=== PATIENT | male | born 1995 | race African-American/Black ===

== ENCOUNTER 2022-05-08 16:56 | Emergency (ER) | payer OTHER, SELFPAY ==
--- NOTE | ~2022-05-08 | US_ITS ---
EXAMINATION: US SCROTUM CLINICAL INFORMATION: Left-sided testicular pain. COMPARISON: None TECHNIQUE: A sonogram of the scrotum was performed assessing mckay-scale appearance and color Doppler flow. Spectral Doppler analysis of the arterial and venous flow were performed in the testes bilaterally. FINDINGS: RIGHT: Right testicle measures 3.9 x 2.4 x 2.6 cm, volume 12.2 mL. No focal testicular parenchymal lesions are visualized. Spectral Doppler analysis of the arterial and venous flow is normal in the right testis. Normal variant of an appendix testes on the right. Microlithiasis in right testicle. Right epididymal head is normal in size. Small volume right-sided hydrocele. No varicocele. Right epididymal Doppler flow is normal. LEFT: Left testicle measures 4 x 2 x 2.4 cm, volume 10 mL. No focal testicular parenchymal lesions are visualized. Spectral Doppler analysis of the arterial and venous flow is normal in the left testis. Microlithiasis and left testicle. Left epididymal head is normal in size. Trace left-sided hydrocele. There is no varicocele. Left epididymal Doppler flow is normal. US/US scrotum doppler IMPRESSION: 1. No acute abnormality. 2. Bilateral microlithiasis. 3. Small volume right-sided hydrocele. Trace left-sided hydrocele. 4. No varicocele. 5. Normal vascular flow in the right and left testicle. No testicular torsion. 6. Microlithiasis in the right and left testicle. In the absence of any other risk factors for testicular cancer (e.g. Personal history of testicular cancer, a father or brother with testicular cancer, history of cryptorchidism or maldescent, testicular atrophy, or other risk factors), no further imaging or biochemical follow-up is necessary; all that is recommended is routine monthly testicular self-examination. However, if the patient has risk factors for testicular cancer, referral to a urologist for evaluation and determination of an optimal follow-up strategy is recommended.
--- NOTE | ~2022-05-08 | CT_ITS ---
EXAMINATION: CT ABDOMEN AND PELVIS WITHOUT CONTRAST CLINICAL INFORMATION: Enlarged scrotum. Question hernia. COMPARISON: None TECHNIQUE: Multidetector volumetric imaging was performed from the superior aspect of the liver through the pubic symphysis. Sagittal and coronal reformatted images were obtained on the technologist's workstation. This CT examination was performed using dose optimization techniques as appropriate, variously including the following: *Automated exposure control *Adjustment of mA and/or kV according to patient size (this includes techniques or standardized protocols for targeted exams where dose is matched to indication/reason for exam; i.e. extremities or head) *Use of iterative reconstruction technique DLP: 629 mGy-cm FINDINGS: LUNG BASES: The visualized lung bases are unremarkable. LIVER, GALLBLADDER, AND BILIARY TREE: The liver is normal in size, shape, and attenuation. No focal hepatic lesion or biliary ductal dilatation is present. The gallbladder is unremarkable with no evidence of radiopaque gallstones, gallbladder wall thickening, or obvious pericholecystic inflammatory changes. PANCREAS: Unremarkable. SPLEEN: Unremarkable. ADRENAL GLANDS: Unremarkable. KIDNEYS AND URETERS: The kidneys are normal in size, shape, and attenuation. No hydronephrosis, hydroureter, or calculi seen. No perinephric stranding. BLADDER: Unremarkable. GASTROINTESTINAL TRACT: The small and large bowel are unremarkable. The appendix is unremarkable. ABDOMINAL WALL: There is a large fat-containing inguinal hernia. This appears to be an indirect hernia. Inflammation/fluid is seen dependently in the hernia sac. This extends into the scrotum. LYMPH NODES: Normal. VASCULAR: Unremarkable. PELVIC VISCERA: The prostate and seminal vesicles are unremarkable. OSSEOUS STRUCTURES: Unremarkable. CT/CT abdomen pelvis wo IV con IMPRESSION: Large fat-containing inguinal hernia. This appears to be an indirect hernia. Inflammation/fluid is seen dependently in the hernia sac. This extends into the scrotum. Fleischner guidelines were followed.
[2022-05-08 17:23] VITALS: BP 130/71; PULSE 67; RESP 18; TEMP 36.6; O2SAT 99; BMI 27.9
[2022-05-08 17:47] LABS: Appearance Urine Clear; Color Urine Yellow; Glucose Urine UA Negative (Negative); Leukocyte Esterase Urine Negative (Negative); Nitrite Urine Negative (Negative); PH 7.5 (5.0-9.0); Urine Blood Negative (Negative); Urine Ketones Negative (Negative); Urine Protein Negative (Neg-Trace)
[2022-05-08 20:35] VITALS: BP 124/62; PULSE 65; RESP 17; TEMP 37.2; O2SAT 100
--- NOTE | 2022-05-08 22:17 | ED_ITS ---
HPI - Male Genitourinary General Chief complaint: Urogenital-Male Stated complaint: ? swollen testicles in great pain Time Seen by Provider: 05/08/22 20:57 Source: patient Mode of arrival: ambulatory Limitations: no limitations History of Present Illness HPI Narrative: 27-year-old male presenting to the emergency department with complaints of testicular pain and swelling for the past year worsening over the past few days. Patient tells me that this has happened to him before, reporting pain is worse to the right testicle. Tells me pain is gradual in onset, however these past 2 days have been tolerable. He tells me he was referred to a specialist for this problem once however he has not seen them yet. Patient denies any concerns for STDs or STIs. Denies any urinary symptoms. He tells me his scrotum appears large and is tender to palpation particularly on the right-hand side. Patient denies chest pain, shortness of breath, nausea, vomiting, fevers, chills, headache, vision changes in dizziness. Related Data Allergies Allergy/AdvReac Type Severity Reaction Status Date / Time No Known Allergies Allergy Verified 05/08/22 17:22 Review of Systems Review of Systems: Constitutional : No Weight loss, No Fever, No Chills, No Fatigue, No Malaise ENT/Mouth : No sore throat, No Rhinorrhea Eyes: No Eye Pain, No Swelling, No Redness Cardiovascular : No Chest Pain, No SOB, No Dyspnea on Exertion, No Orthopnea, No Edema, No Palpitations Respiratory : No Cough, No Sputum, No Wheezing Gastrointestinal : No Nausea, No Vomiting, No Diarrhea, No Constipation, No abdominal Pain, No Hematochezia, No Melena Genitourinary : No Dysuria, No Urinary Frequency, No Hematuria, + testicular pain Musculoskeletal : No joint pain, No Myalgias, No Joint Swelling Skin : No Skin Lesions, No rash All other systems reviewed and are negative Yes all other systems are reviewed and are negative [facility] Past Medical History Attestation statement: The following information was validated with the patient. Source: old records reviewed and nursing notes reviewed Social History Social History Advance Directives: No Advance Directives Information Provided: No Physical Exam Vital Signs: Vital Signs: Last Vital Signs Temp 99 F 05/08/22 20:35 Pulse 65 05/08/22 20:35 Resp 17 05/08/22 20:35 BP 124/62 05/08/22 20:35 Pulse Ox 100 05/08/22 20:35 O2 Del Method 05/08/22 20:35 BMI result Body Mass Index 27.9 vss Appearance: Alert.? Oriented X3.? No acute distress.? Head: Normocephalic, atraumatic, no step-offs or deformities Eyes: Pupils equal, round and reactive to light.? Neck: Normal inspection.? Neck supple.? CVS: Normal heart rate and rhythm.? Pulses normal.? Respiratory: No respiratory distress.? Breath sounds normal.? Abdomen: Soft and nontender.? Skin: Skin warm and dry.? Normal skin color.? Normal skin turgor.? Extremities: No lower extremity edema.? No calf ttp. 5/5 strength to bilateral upper and lower extremities Sensative: Enlarged scrotum b/l. Slight tenderness to palpation of left testicle, no overlying skin changes, normal cremasteric reflex. Possible hydroceles based off of transillumination test. Normal external genitalia no lesions months or masses. Normal male penis. No discharge. ? indirect hernia to r. side. Neuro: Oriented X 3.? No motor deficit.? No sensory deficit. CN 2-12 intact Course Course Course Narrative: This case was disscused with my attending who evaluated patient and agrees w/ dx and tx plan. Reevaluation(s) Reevaluation #1: UA without infection. Gonorrhea and chlamydia pending. Ultrasound of the scrotum with no acute abnormality, bilateral microlithiasis and small volume right-sided hydrocele and trace left-sided hydrocele. No varicoceles noted. Normal vascular flow and right and left testicles no signs of testicular torsion. Microlithiasis in the right and left testes, without risk factors no further imaging or biochemical follow-up is necessary however will give follow- up with urology as this appears to be a chronic problem that is causing him discomfort for over year. At time patient will be discharged home advised return with new or worsening symptoms. Educated on worrisome signs and symptoms and when to return. Time: 22:21 Reevaluation #2: Jose Miguel Flowers evaluated patient and reduced right inguinal hernia, tells me feels as though it is fat containing. Advised for patient to follow-up with general surgery. 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 At this time patient will be discharged home with general surgery and urology follow-up. Educated on worrisome signs and symptoms and when to return. We did teach him how to reduce his own hernia, patient verbalizes understanding. At this time patient will be discharged home. Time: 00:43 Medications Administered Discontinued Medications Generic Name Dose Route Start Last Admin Trade Name Katharine PRN Reason Stop Dose Admin Ketorolac Tromethamine 30 mg 05/08/22 22:18 05/08/22 22:32 Ketorolac Tromethamine 15 Mg/Ml Vial IM 05/08/22 22:19 30 mg ONCE ONE Administration MDM - Male Genitourinary MDM Narrative Medical decision making narrative: 2219 27-year-old male presents with left-sided testicular pain for a year worsening the past few days. Denies concerns for STD/STI eyes, would not like prophylactic treatment. Physical examination significant for Slight tenderness to palpation of left testicle, no overlying skin changes, normal cremasteric reflex. Possible hydroceles based off of transillumination test. Normal external genitalia no lesions months or masses. Normal male penis. No discharge. Concerns for hydrocele versus epididymitis versus orchitis vs indirect hernia. Unlikely testicular torsion. Plan at this time is ultrasound, urine, gonorrhea and chlamydia testing. Medical Records Attestation: I reviewed the patient's medical records. Lab Data Attestation: I reviewed the patient's lab results. Labs: Lab Results 05/08/22 Range/Units 17:38 Urine Color Yellow Urine Appearance Clear Urine pH 7.5 (5.0-9.0) Ur Specific [place] 1.020 (1.005-1.025) Urine Protein Negative (Neg-Trace) mg/dL Urine Glucose (UA) Negative (Negative) mg/dL Urine Ketones Negative (Negative) mg/dL Urine Blood Negative (Negative) Urine Nitrite Negative (Negative) Ur Leukocyte Esterase Negative (Negative) Critical Care Time Critical Care Time Critical Care Time: No Discharge Plan Discharge Clinical Impression: Hydrocele, Pain in testicle, Indirect inguinal hernia Patient Disposition: Home, Self-Care Instructions: Hydrocele (ED), Testicle Pain (ED), Scrotal Pain (ED) Additional Instructions: Take your medications as prescribed. If you were prescribed antibiotics today, it is important that you take your medication to their entirety, do not skip any doses, do not finish them early. Follow-up with your primary care provider this week. Follow-up with urology information below. Return to the emergency department with new or worsening symptoms. Such as fevers, chills, chest pain, shortness of breath, nausea, vomiting, dizziness, headache, vision changes, lethargy, fevers, chills In case of emergency call 911 Elevate your testicles. US/US scrotum IMPRESSION: 1.? No acute abnormality. 2.? Bilateral microlithiasis. 3.? Small volume right-sided hydrocele. Trace left-sided hydrocele. 4.? No varicocele. 5.? Normal vascular flow in the right and left testicle. No testicular torsion. 6.? Microlithiasis in the right and left testicle. In the absence of any other risk factors for testicular cancer (e.g. Personal history of testicular cancer, a father or brother with testicular cancer, history of cryptorchidism or maldescent, testicular atrophy, or other risk factors), no further imaging or biochemical follow-up is necessary; all that is recommended is routine monthly testicular self-examination. However, if the patient has risk factors for testicular cancer, referral to a urologist for evaluation and determination of an optimal follow-up strategy is recommended. CT/CT abdomen pelvis wo IV con IMPRESSION: Large fat-containing inguinal hernia. This appears to be an indirect hernia. Inflammation/fluid is seen dependently in the hernia sac. This extends into the scrotum. ? Fleischner guidelines were followed. Referrals: Physician,None [Primary Care Provider] - 2 days [facility] [Provider Group] - 3 days Stand Alone Forms: Work/School Release
[2022-05-08] MEDS: Ketorolac Tromethamine 15 MG/ML VIAL 30 MG IM (22:32)
--- NOTE | 2022-05-08 22:41 | PC.NURSE ---
patient speaks [place] Creole. Video/phone quality technician fiberglass services available when interacting with patient.
--- NOTE | 2022-05-09 00:58 | PC.NURSE ---
Discharge instructions reviewed with pt. Pt verbalizes understanding.
[2022-05-09 05:42] LABS: CT PCR NOT DETECTED (Not Detect.); NG PCR NOT DETECTED (Not Detect.)
== END 2022-05-09 00:59 | disposition home or self-care (01) ==
PROVIDERS: Emergency Provider Internal Medicine
DX: N43.3 Hydrocele, unspecified (principal); N50.812 Left testicular pain; N50.811 Right testicular pain; K40.90 Unilateral inguinal hernia, without obstruction or gangrene, not specified as recurrent
CPT/HCPCS: 74176; 76870; 81003; 87491; 87591; 93975; 96372; 99284; J1885

== ENCOUNTER → 2022-05-12 14:11 | Outpatient (BNVA) | payer OTHER, SELFPAY | PROVIDERS: Visit Provider Surgery | DX: K40.90 Unilateral inguinal hernia, without obstruction or gangrene, not specified as recurrent (principal); L73.9 Follicular disorder, unspecified | CPT/HCPCS: 99202 ==

== ENCOUNTER 2023-11-07 15:02 | Emergency (ER) | payer OTHER, SELFPAY ==
--- NOTE | ~2023-11-07 | US_ITS ---
EXAMINATION: US SCROTUM CLINICAL INFORMATION: Right-sided testicular pain. COMPARISON: 05/08/2022 TECHNIQUE: A sonogram of the scrotum was performed assessing mckay-scale appearance and color Doppler flow. Spectral Doppler analysis of the arterial and venous flow were performed in the testes bilaterally. FINDINGS: RIGHT: Right testicle measures 3.0 x 2.5 x 2.6 cm, volume 10.2 mL. Testicular microlithiasis again noted. No focal testicular parenchymal lesions are visualized. Spectral Doppler analysis of the arterial and venous flow is normal in the right testis. Right inguinal hernia again noted. No bowel involvement. Right epididymal head is normal in size. No right hydrocele or varicocele is seen. Right epididymal Doppler flow is normal. LEFT: Left testicle measures 4.1 x 2.2 x 2.5 cm, volume 11.7 mL. Testicular microlithiasis again noted. No focal testicular parenchymal lesions are visualized. Spectral Doppler analysis of the arterial and venous flow is normal in the left testis. Left epididymal head is normal in size. No left hydrocele or varicocele is seen. Left epididymal Doppler flow is normal. US/US scrotum IMPRESSION: 1. No evidence for any active torsion. No discrete mass. Testicular microlithiasis again noted. No new findings. No new abnormality. No hydrocele. No mass. No change from 05/08/2022. If patient's symptoms persist, consider follow-up ultrasound in 6 months. 2. Incidental note of bilateral testicular microlithiasis. No testicular mass. No evidence for any active torsion. No change from prior study 05/08/2022. 3. Right inguinal hernia again noted containing fat.
--- NOTE | ~2023-11-07 | US_ITS ---
EXAMINATION: US SCROTUM CLINICAL INFORMATION: Right-sided testicular pain. COMPARISON: 05/08/2022 TECHNIQUE: A sonogram of the scrotum was performed assessing mckay-scale appearance and color Doppler flow. Spectral Doppler analysis of the arterial and venous flow were performed in the testes bilaterally. FINDINGS: RIGHT: Right testicle measures 3.0 x 2.5 x 2.6 cm, volume 10.2 mL. Testicular microlithiasis again noted. No focal testicular parenchymal lesions are visualized. Spectral Doppler analysis of the arterial and venous flow is normal in the right testis. Right inguinal hernia again noted. No bowel involvement. Right epididymal head is normal in size. No right hydrocele or varicocele is seen. Right epididymal Doppler flow is normal. LEFT: Left testicle measures 4.1 x 2.2 x 2.5 cm, volume 11.7 mL. Testicular microlithiasis again noted. No focal testicular parenchymal lesions are visualized. Spectral Doppler analysis of the arterial and venous flow is normal in the left testis. Left epididymal head is normal in size. No left hydrocele or varicocele is seen. Left epididymal Doppler flow is normal. US/US scrotum doppler IMPRESSION: 1. No evidence for any active torsion. No discrete mass. Testicular microlithiasis again noted. No new findings. No new abnormality. No hydrocele. No mass. No change from 05/08/2022. If patient's symptoms persist, consider follow-up ultrasound in 6 months. 2. Incidental note of bilateral testicular microlithiasis. No testicular mass. No evidence for any active torsion. No change from prior study 05/08/2022. 3. Right inguinal hernia again noted containing fat.
[2023-11-07 15:50] VITALS: BP 109/79; PULSE 71; RESP 18; TEMP 37.4; O2SAT 98
--- NOTE | 2023-11-07 15:56 | ED_ITS ---
HPI - General Adult General Chief complaint: Urogenital-Male Stated complaint: hernia Time Seen by Provider: 11/08/23 00:19 Source: patient Mode of arrival: ambulatory Limitations: no limitations History of Present Illness ED Provider: Dr. Eugene Mcdowell HPI narrative: 28-year-old male with no significant past medical history who presents emergency department for evaluation of right testicular pain. The patient states that he has had right groin and testicular pain for 2 years. He states that he had a hernia repair at [facility] proximally 2 years prior which failed. Patient states that over the past week he has had increased pain in his right testicle and a area where he has the hernia. He states that the pain is an intermittent, pressure-like pain which can be 5/10 at its worst. The patient does take Tylenol relief for the pain. He denied frequency, urgency, dysuria. He denied any penile discharge. Related Data Home Medications ?Medication ?Instructions ?Recorded ?Confirmed No Known Home Meds 05/12/22 05/12/22 Allergies Allergy/AdvReac Type Severity Reaction Status Date / Time No Known Allergies Allergy Verified 11/07/23 15:53 Review of Systems 2 Review of Systems: Yes all other systems are reviewed and are negative [facility] Past Medical History [facility] Narrative: Past medical history: None. Past surgical history: Right inguinal hernia repair 2 years prior at [facility]. Social history: He denies tobacco, alcohol and drug use. He is . Social History Social History (Reviewed 05/12/22 @ 14:52 by Keith Sanchez MD, [facility], [facility]) Advance Directives: No Advance Directives Information Provided: No Physical Exam ED Vital Signs: Vital Signs - 24 hr 11/07/23 15:50 11/07/23 23:26 Temperature 99.3 F 97.4 F Pulse Rate 71 68 Respiratory Rate 18 16 Blood Pressure 109/79 131/79 Pulse Oximetry 98 97 Oxygen Delivery Method Room Air Room Air BMI result Body Mass Index 30.0 Vital signs were Exam: General: Awake, alert in no distress Head: Normocephalic, atraumatic EENT: PERRL, Lids normal, sclera normal, conjunctiva normal, nose normal , ears normal, throat without erythema or exudates Neck: Supple, no adenopathy Lung: breath sounds symmetric, no wheezing, rales or rhonchi Chest: symmetric movement, nontender Heart: regular rate and rhythm, normal S1, S2 no murmurs or rubs Abdomen: soft, non-tender, nondistended, normal bowel sounds : Patient has a large hernia in his right scrotum which is tender to palpation Back: no vertebral tenderness, no CVAT Extremities: no deformities, moves all extremities symmetrically Neuro: Awake, alert, oriented, normal speech, cranial nerves intact, moves all extremities symmetrically Psych: Pleasant, cooperative Course Course Course Narrative: RME- 28-year-old male presents for evaluation of right groin pain. He states that he has a known hernia and right testicle pain. Plan for labs, UA, ultrasound Medical Decision Making Medical Decision Making [facility] Narrative: 28-year-old male with no significant past medical history who has had a right inguinal hernia repair 2 years prior at [facility] which she states failed. The patient complains of right-sided testicular/scrotal pain x1 week which is gotten worse. He has had similar pain over the last 2 years. Patient's vital signs were normal patient's exam does reveal a large right inguinal/scrotal hernia. Differential diagnosis: ?Includes but is not limited to fat hernia, intestinal hernia, testicular torsion, epididymitis Following evaluation was ordered: CBC, CMP, lipase, right testicular ultrasound Course: :02 Laboratory evaluation as follows: CBC was normal. CMP revealed an elevated CO2 of 30. Lipase was normal Doppler ultrasound of the right scrotum revealed no torsion. The patient does have [place] listhesis which was noted in the past no testicular mass. No change from 05/08/2022. Patient was noted to have a right inguinal hernia containing fat. Patient's right testicular pain is due to the large inguinal fat hernia in his scrotum. I did discuss this with the patient. The patient will be referred to our on-call surgeon Dr. Harris and our on-call urologist Dr. Burk. He was advised to continue taking Tylenol and ibuprofen for his pain Admission/Observation Consideration of admission/observation: Escalation of care including admission/observation considered Lab Data [facility] Lab Attestation statement: I reviewed the patient's lab results. 11/07/23 17:11 11/07/23 17:11 Labs: Lab Results 11/07/23 Range/Units 17:11 WBC 7.0 (4.8-10.8) X10*3/uL RBC 5.32 (4.60-5.80) X10*6/uL Hgb 15.5 (14.0-18.0) g/dl Hct 45.1 (42.0-52.0) % MCV 84.8 (80.0-98.0) fL MCH 29.1 (27.0-33.0) pg MCHC 34.4 (31.0-36.0) g/dl RDW 12.5 (11.0-16.0) % Plt Count 336 (160-400) X10*3/uL MPV 9.3 L (9.4-12.4) fL Immature Gran % (Auto) 0.1 (0.0-0.4) % Neut % (Auto) 36.2 L (45-73) % Lymph % (Auto) 49.6 H (20-40) % [place] % (Auto) 6.5 (2-11) % Eos % (Auto) 6.7 H (0-4) % Baso % (Auto) 0.9 (0-2) % Lymph # (Auto) 3.5 (1.2-4.9) X10*3/uL [place] # (Auto) 0.5 (0.1-1.2) X10*3/uL Eos # (Auto) 0.5 H (0.0-0.4) X10*3/uL Baso # (Auto) 0.1 (0.0-0.2) X10*3/uL Abs Immat Gran (auto) 0.01 (0.00-0.03) X10*3/uL Absolute Neuts (auto) 2.5 (2.0-8.3) x10*3/uL Absolute Nucleated RBC 0.000 (0.0-0.012) X10*3/uL Nucleated RBC % (auto) 0.0 (0.0-0.2) /100WBC Sodium 141 (135-145) mmol/L Potassium 3.7 (3.3-5.1) mmol/L Chloride 104 (96-108) mmol/L Carbon Dioxide 30 H (22-29) mmol/L Anion Gap 11 L (12-20) BUN 11 (9-16) mg/dL Creatinine 0.98 (0.5-1.4) mg/dL Estim Creat Clear Calc 124.1 Estimated GFR > 60 Random Glucose 80 (60-115) mg/dL Calcium 9.3 (8.4-10.2) mg/dL Total Bilirubin 0.4 (0.0-1.0) mg/dL AST 19 (5-37) U/L ALT 26 (0-40) U/L Alkaline Phosphatase 70 (39-117) U/L Total Protein 7.3 (6.5-8.0) g/dL Albumin 4.3 (3.5-5.0) g/dL Lipase 27 (8-78) U/L Radiology Impression Discussion of test interpretation with radiology: I have reviewed the radiologist's reading. Radiologist Impression: US scrotum doppler IMPRESSION: 1. No evidence for any active torsion. No discrete mass. Testicular microlithiasis again noted. No new findings. No new abnormality. No hydrocele. No mass. No change from 05/08/2022. If patient's symptoms persist, consider follow-up ultrasound in 6 months. 2. Incidental note of bilateral testicular microlithiasis. No testicular mass. No evidence for any active torsion. No change from prior study 05/08/2022. 3. Right inguinal hernia again noted containing fat. Dictated By: Adriel Santoro MD Discharge Plan Discharge Clinical Impression: Right inguinal hernia Patient Disposition: Home, Self-Care Instructions: Inguinal Hernia (ED) Additional Instructions: Your blood work was normal. The ultrasound revealed a right-sided fat containing inguinal hernia. The testicle on the right side is not twisted. Testicles bilaterally which is not new, you had these before but you should follow-up with our urologist You were here 05/09/2022 and at that time he also had a large fat containing hernia. I am going to refer you to our surgeon on-call, Dr. Harris. Call his office to make a follow-up appointment within 2 weeks to see if he can help you with this hernia. You also need to follow-up with our on-call urologist, Dr. Burk to evaluate your microlithiasis/stones in your testicles. Take ibuprofen 200 mg pills, 2 pills every 6 hours as needed for pain or fever. Take Tylenol (acetaminophen) 500 mg pills, 2 pills every 6 hours as needed for pain or fever. Follow-up with your doctor in 2 days. Please return to the emergency department if your symptoms get worse or if you develop any symptoms that are concerning to you. Prescriptions: No Action No Known Home Meds Referrals: Mikey Harris MD [Physician] - 2 weeks (Right, large indirect fat inguinal hernia with no intestine) Roe Burk MD [Physician] - (Right testicular pain, large right indirect fat containing inguinal hernia, myocardial listhesis noted on off for sign with no torsion) Print Language: Citizen Of [place] Creole
[2023-11-07 17:17] LABS: MANUAL DIFF FLAG NO
[2023-11-07 17:24] LABS: Basophils Absolute Auto 0.1 X10*3/uL (0.0-0.2); Basophils Percent Auto 0.9 % (0-2); Eosinophils Absolute Auto 0.5 X10*3/uL (0.0-0.4); Eosinophils Percent Auto 6.7 % (0-4); Hematocrit 45.1 % (42.0-52.0); Hemoglobin 15.5 g/dl (14.0-18.0); Imm Gran Abs Auto 0.01 X10*3/uL (0.00-0.03); Imm Gran Pct Auto 0.1 % (0.0-0.4); Lymphocytes Absolute Auto 3.5 X10*3/uL (1.2-4.9); Lymphocytes Percent Auto 49.6 % (20-40); Mean Corpuscular HGB Conc 34.4 g/dl (31.0-36.0); Mean Corpuscular Hemoglobin 29.1 pg (27.0-33.0); Mean Corpuscular Volume 84.8 fL (80.0-98.0); Mean Platelet Volume 9.3 fL (9.4-12.4); Monocytes Absolute Auto 0.5 X10*3/uL (0.1-1.2); Monocytes Percent Auto 6.5 % (2-11); Neutrophils Absolute Auto 2.5 x10*3/uL (2.0-8.3); Neutrophils Percent Auto 36.2 % (45-73); Platelet Count 336 X10*3/uL (160-400); Red Blood Count 5.32 X10*6/uL (4.60-5.80); Red Cell Distribution Width 12.5 % (11.0-16.0)
[2023-11-07 17:38] LABS: Alanine Aminotransferase 26 U/L (0-40); Albumin Level 4.3 g/dL (3.5-5.0); Alkaline Phosphatase 70 U/L (39-117); Anion Gap 11 (12-20); Aspartate Amino Transferase 19 U/L (5-37); Bilirubin Total 0.4 mg/dL (0.0-1.0); Blood Urea Nitrogen 11 mg/dL (9-16); Calcium 9.3 mg/dL (8.4-10.2); Carbon Dioxide 30 mmol/L (22-29); Chloride 104 mmol/L (96-108); Creatinine Clr Calc Pharmacy 124.1; Estimated Glomerular Filt Rate > 60; Glucose Random 80 mg/dL (60-115); Lipase 27 U/L (8-78); Potassium 3.7 mmol/L (3.3-5.1); Sodium 141 mmol/L (135-145); Total Protein 7.3 g/dL (6.5-8.0)
[2023-11-07 23:26] VITALS: BP 131/79; PULSE 68; RESP 16; TEMP 36.3; O2SAT 97
[2023-11-08 01:02] VITALS: BP 131/79; PULSE 68; RESP 16; TEMP 36.3; O2SAT 97
== END 2023-11-08 01:06 | disposition home or self-care (01) ==
PROVIDERS: Physician Assistant; Emergency Provider Emergency Medicine Emergency Medical Services
DX: K40.90 Unilateral inguinal hernia, without obstruction or gangrene, not specified as recurrent (principal)
CPT/HCPCS: 36415; 76870; 80053; 83690; 85025; 93975; 99282; 99284

== ENCOUNTER 2023-11-17 11:01 | Outpatient (AMB) | payer OTHER, SELFPAY ==
[2023-11-17 11:16] VITALS: BP 131/71; PULSE 65; BMI 30.4
--- NOTE | 2023-11-17 11:16 | A.OFFVIS_ITS ---
Vital Signs 11/17/23 11:16 Height 5 ft 7.32 in Weight 196 lb BMI 30.4 BP 131/71 Blood Pressure Location Rt brachial Position Sitting Pulse 65 Intake Visit Reasons: Umbilical hernia~ ER 11-07-23 Intake Note: Patient referred after ER visit for umbilical hernia on 11-07-23. Present for 2yrs. Patient c/o: Rt testicle/ scrotum pain. ~Called [facility] medical records but no records found. Allergies No Known Allergies Allergy (Verified 11/07/23 15:53) HPI Comments Details: Patient presents with a right groin mass which has extended through the scrotum. He has had this many weeks time. He claims to have had a procedure done at [facility] but we have no records of this and we tried to contact facility to obtain these but there are none available. In the meantime, this mass has become more symptomatic and he would like to have it evaluated and repaired. Patient otherwise tolerates his diet, he is regular bowel habits. He does occasional heavy lifting. Chart was reviewed and patient evaluated. 0 recent ultrasound at the outside facility demonstrates a right scrotal/complete inguinal hernia. Physical Exam Vital Signs: Last Vital Signs Pulse 65 11/17/23 11:16 BP 131/71 11/17/23 11:16 BMI result Body Mass Index 30.4 Chest Other: Chest breath sounds bilaterally, HS 1 in 2 GI Other: Patient was examined both supine and standing with Valsalva. Abdomen is soft, benign left groin negative. Massive right scrotal/complete inguinal hernia reducible. Bilateral testes palpable with difficulty but grossly within normal limits. Patient has a right scrotal scar from the procedure he had at the outside facility but is unclear to me as to for what this was done Assessment & Plan Assessment & Plan (1) Right inguinal hernia: Code(s): K40.90 - Unilateral inguinal hernia, without obstruction or gangrene, not specified as recurrent Category: Surgical Plan Risks, benefits, alternatives of open right inguinal herniorrhaphy with mesh of the massive right inguinal hernia were reviewed with the patient and included but not limited to bleeding, infection, recurrence, numbness, pain, scarring and the patient wishes to proceed. All questions answered. Arrangements were made for this. Coding Level of Care Code New Pt Level 5 (73018) Diagnoses Right inguinal hernia K40.90
== END 2023-11-17 12:00 | disposition home or self-care (01) ==
PROVIDERS: Visit Provider Surgery
DX: K40.90 Unilateral inguinal hernia, without obstruction or gangrene, not specified as recurrent (principal)
CPT/HCPCS: 99204

== ENCOUNTER → 2023-11-17 11:01 | Outpatient (BNVA) | payer OTHER, SELFPAY | PROVIDERS: Visit Provider Surgery | DX: K40.90 Unilateral inguinal hernia, without obstruction or gangrene, not specified as recurrent (principal) | CPT/HCPCS: 99202 ==

== ENCOUNTER 2024-01-11 13:21 | Outpatient (AMB) | payer OTHER, SELFPAY ==
--- NOTE | 2024-01-11 13:34 | A.OFFVIS_ITS ---
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 Jeter. He presents to the office today as a new patient for testicular/scrotal pain. In discussion with the patient today reports having seeked emergency room care approximately 2 months ago for right-sided groin and testicular pain he had been experiencing at which time a scrotal ultrasound was ordered and performed. These results were reviewed with the patient today. No evidence of any active torsion. Testicular microlithiasis again noted. No new findings. No new abnormality. Right inguinal hernia again noted. He reports pain has since subsided and feels this is related to his right-sided inguinal hernia and is scheduled for repair next week. He denies any bothersome urinary issues or concerns. Patient declines physical assessment during today's office visit. Discussed in offered male provider however he reports he is no longer experiencing any testicular or scrotal pain and therefore he does not feel assessment is necessary at this time. He denies urinary urgency, urinary frequency, incontinence, nocturia, hematuria, dysuria, foul smelling urine, changes to urinary stream, flank pain, fever, and or chills. He is happy with his current voiding parameters. In office urinalysis results reviewed with the patient today. He otherwise offers no other issues or concerns at this time. Review of Systems Const All systems reviewed & are unremarkable except as noted in HPI and below Physical Exam Const General: cooperative, healthy appearing, comfortable, no acute distress, well developed, alert and awake Orientation/consciousness: patient oriented x3 Limitations: no limitations HEENT Head: Yes normal to inspection, Yes normocephalic and Yes atraumatic Ears: hearing grossly normal bilaterally Eyes General: appearance normal, both eyes and all related structures Neck Neck: Yes normal visual inspection and Yes trachea midline Chest Chest palpation & inspection: normal inspection of the chest Resp Effort & Inspection: normal respiratory effort and able to speak in complete sentences Cardio Rate: regular rate GI Inspection: Yes normal to inspection General: Yes no CVA tenderness Back/Spine/Pelvis Back: no CVA tenderness Skin General skin exam: no rashes or lesions noted Neuro General: patient oriented x3 Extrem General: Yes normal to inspection Psych Appearance: grossly normal and well kempt Mental Status: mental status grossly normal Speech and movement: Normal speech and movement present and Clear speech present Affect: normal affect Attitude: cooperative Thought process: Normal thought process present Thought content: Normal thought content present Insight: Fair insight present (Psych) Judgement: Fair judgement present (Psych) Results AMB Urinalysis, Automated UA Leukoctes 0 Olga/uL Last Edit by [employer] on 01/11/24 13:43 UA Nitrite Negative Last Edit by [employer] on 01/11/24 13:43 UA Urobilinogen 0.2 mg/dL Last Edit by [employer] on 01/11/24 13:43 UA Protein 0 mg/dL Last Edit by [employer] on 01/11/24 13:43 UA pH 6.5 Last Edit by [employer] on 01/11/24 13:43 UA Blood 0 Vincent/uL Last Edit by [employer] on 01/11/24 13:43 UA Specific [place] 1.015 Last Edit by [employer] on 01/11/24 13:43 UA Ketone Negative Last Edit by [employer] on 01/11/24 13:43 UA Bilirubin 0 mg/dL Last Edit by [employer] on 01/11/24 13:43 UA Glucose 0 mg/dL Last Edit by [employer] on 01/11/24 13:43 Results Reviewed Results Reviewed: Laboratory Last Values Urine pH (Auto) 6.5 01/11/24 13:41 Specific [place] (Auto) 1.015 01/11/24 13:41 Urine Protein (Auto) 0 mg/dL 01/11/24 13:41 Glucose (UA)(Auto) 0 mg/dL 01/11/24 13:41 Urine Ketones (Auto) Negative 01/11/24 13:41 Urine Blood (Auto) 0 Vincent/uL 01/11/24 13:41 Urine Nitrite (Auto) Negative 01/11/24 13:41 Urine Bilirubin (Auto) 0 mg/dL 01/11/24 13:41 Urine Urobilinogen (Auto) 0.2 mg/dL 01/11/24 13:41 Leukocyte Esterase (Auto) 0 Olga/uL 01/11/24 13:41 Date of Service: 11/07/23 EXAMINATION: US SCROTUM FINDINGS: RIGHT: Right testicle measures 3.0 x 2.5 x 2.6 cm, volume 10.2 mL. Testicular microlithiasis again noted. No focal testicular parenchymal lesions are visualized. Spectral Doppler analysis of the arterial and venous flow is normal in the right testis. Right inguinal hernia again noted. No bowel involvement. Right epididymal head is normal in size. No right hydrocele or varicocele is seen. Right epididymal Doppler flow is normal. LEFT: Left testicle measures 4.1 x 2.2 x 2.5 cm, volume 11.7 mL. Testicular microlithiasis again noted. No focal testicular parenchymal lesions are visualized. Spectral Doppler analysis of the arterial and venous flow is normal in the left testis. Left epididymal head is normal in size. No left hydrocele or varicocele is seen. Left epididymal Doppler flow is normal. IMPRESSION: 1. No evidence for any active torsion. No discrete mass. Testicular microlithiasis again noted. No new findings. No new abnormality. No hydrocele. No mass. No change from 05/08/2022. If patient's symptoms persist, consider follow-up ultrasound in 6 months. 2. Incidental note of bilateral testicular microlithiasis. No testicular mass. No evidence for any active torsion. No change from prior study 05/08/2022. 3. Right inguinal hernia again noted containing fat. Assessment & Plan Assessment & Plan (1) Right inguinal hernia: Code(s): K40.90 - Unilateral inguinal hernia, without obstruction or gangrene, not specified as recurrent Category: Surgical (2) Pain in testicle: Code(s): N50.819 - Testicular pain, unspecified Category: Medical Plan In office urinalysis results reviewed with the patient today; as noted above. Recent scrotal ultrasound results reviewed with the patient today; as noted above. Patient denies any bothersome urinary issues or concerns. He reports be happy with current voiding parameters. Patient reports pain has since subsided. Discussed at length potential causes for testicular/scrotal pain patient had been experiencing. Patient declines physical assessment today. Follow-up p.r.n. Orders: Orders AMB Urinalysis Automated Today Z13.9 - Encounter for screening, unspecified Patient Instructions: The patient had an opportunity to ask questions regarding the treatment plan. All questions were answered. Physical exam, labs, and imaging were discussed and reviewed in detail. As well as risks, benefits, and discussion of treatment choices. No major barriers to understanding were identified. The patient expressed understanding and agreement with the above treatment plan. The patient was made aware they should contact our office by phone for worsening of their current condition, the appearance of new symptoms, or with any questions or concerns. Compliance is encouraged with any medications and follow up testing that is ordered. It is a privilege to be allowed the opportunity to participate in? your urological care.? Again, if you have any questions or concerns If you have any questions or concerns please do not hesitate to contact me. The office is [phone]. This note is constructed using voice recognition software. While every effort has been made to ensure accuracy customer solutions teammate errors may have been included. Yours sincerely, TUAN Matta Coding Level of Care Code New Pt Level 3 (58597) Diagnoses Right inguinal hernia K40.90 Pain in testicle N50.819
== END 2024-01-11 13:57 | disposition home or self-care (01) ==
LOC: HO.HUSH 13:21
PROVIDERS: PCP Family Medicine; Visit Provider Nurse Practitioner Family
DX: K40.90 Unilateral inguinal hernia, without obstruction or gangrene, not specified as recurrent (principal); N50.819 Testicular pain, unspecified; Z13.9 Encounter for screening, unspecified
CPT/HCPCS: 99203

== ENCOUNTER → 2024-01-11 13:21 | Outpatient (BNVA) | payer OTHER, SELFPAY | PROVIDERS: PCP Family Medicine; Visit Provider Nurse Practitioner Family | DX: N50.811 Right testicular pain (principal); K40.90 Unilateral inguinal hernia, without obstruction or gangrene, not specified as recurrent | CPT/HCPCS: 81003; 99202 ==

== ENCOUNTER 2024-01-14 09:02 | Day surgery (SDC) | payer OTHER, SELFPAY ==
[2023-12-08 08:08] VITALS: BMI 30.7
--- NOTE | 2023-12-08 14:33 | HO.ANESPROP2 ---
HPI - Anesthesia Eval Consult details Narrative: 28yo M for Right Open Hernia Inguinal Reducible Repair with mesh PMFSH Active Problems Active Problems: All Active Problems Folliculitis (Acute) Right inguinal hernia (Acute) Meds Allergies Allergy/AdvReac Type Severity Reaction Status Date / Time No Known Allergies Allergy Verified 11/07/23 15:53 Home Medications ?Medication ?Instructions ?Recorded ?Confirmed ?Last Taken ?Type No Known Home Meds 05/12/22 11/17/23 Unknown History Exam Height,Weight and Vital Signs: Height 5 ft 7 in Weight 88.904 kg Pertinent Lab Results Pertinent Lab Results: Laboratory Tests 11/07/23 17:11 WBC 7.0 Hgb 15.5 Hct 45.1 Plt Count 336 Sodium 141 Potassium 3.7 Chloride 104 Carbon Dioxide 30 H BUN 11 Creatinine 0.98 Assessment and Plan Assessment Anesthesia Assessment: Chart Reviewed
--- NOTE | 2024-01-13 14:04 | P.HPSUR_ITS ---
Pre-Procedural Eval Section A - 24 Hr Update-Section A only Date of Service: 01/14/24 The patient is an INPATIENT: No Changes since office visit: No Cold of Flu in the past 2 weeks, No New Medical Problems, No Changes in Medication and No Patient answered all questions The patient has been examined within 24 hours of the surgical procedure. The History & Physical has been completed within 30 days and I have reviewed it.: Yes Section B - Complete if H&P > 30 days Chief Complaint: Unilateral inguinal hernia, without obstruction or Allergies: Allergies Allergy/AdvReac Type Severity Reaction Status Date / Time No Known Allergies Allergy Verified 01/11/24 21:01 Review of Systems Sugical H&P ROS: Negative: Constitution, Cardiovascular, Respiratory, Neurological, Psychiatric, Hem-Onc, Allergic/Immunologic, Gastrointestinal, Genitourinary, Musculoskeletal, Integumentary, Endocrine and Eyes/Ears/Nose/Th roat Exam Surgical H&P Exam: Normal: HEENT, Normal: Heart, Normal: Lungs, Normal: Extremities, Normal: Abdomen, Normal: Skin and Normal: Neurological Plan I have reviewed the history and physical and performed a pertinent physical examination on my patient. No changes have occurred unless specified. Time Spent With Patient Time: Total time managing care of this patient today ____ minutes.
[2024-01-14] VITALS (8 sets, daily range): BP systolic 110–122; BP diastolic 58–77; PULSE 50–78; RESP 14–18; TEMP 36.2–36.8; O2SAT 93–99
--- NOTE | 2024-01-14 10:15 | HO.ANESPROP2 ---
Documented by User: Isaura Murillo NP 01/12/24 13:55 HPI - Anesthesia Eval Consult details Narrative: 28yo M for Right Open Hernia Inguinal Reducible Repair with mesh Otherwise healthy Medically optimized per PCP [facility] Active Problems Active Problems: All Active Problems Folliculitis (Acute) Right inguinal hernia (Acute) Social History Social History Advance Directives: No Advance Directives Information Provided: Yes Meds Allergies Allergy/AdvReac Type Severity Reaction Status Date / Time No Known Allergies Allergy Verified 01/11/24 21:01 Home Medications ?Medication ?Instructions ?Recorded ?Confirmed ?Last Taken ?Type No Known Home Meds 05/12/22 11/17/23 Unknown History Exam Height,Weight and Vital Signs: Height 5 ft 7 in Weight 88.904 kg Pertinent Lab Results Pertinent Lab Results: CBC and BMP 12/2023 from outside facility [place] Assessment and Plan Assessment Anesthesia Assessment: Chart Reviewed Documented by User: Deandra Sullivan DO 01/14/24 10:24 [facility] Family History Family history of problems with anesthesia: No Surgical History History of Problems with Anesthesia: No Social History Social History Advance Directives: No Advance Directives Information Provided: Yes Meds Allergies Allergy/AdvReac Type Severity Reaction Status Date / Time No Known Allergies Allergy Verified 01/11/24 21:01 Home Medications ?Medication ?Instructions ?Recorded ?Confirmed ?Last Taken ?Type No Known Home Meds 05/12/22 11/17/23 Unknown History Exam Exam Date and Time: January 14, 2024 1015 Airway Mallampati Class: II TM Dist: >3cm Neck ROM: Full Loose/Missing/Broken Teeth: No (patient denies any loose or broken teeth) Heart: S1S2 Lungs: CTAB Assessment and Plan Assessment Anesthesia Assessment: Anesthesia Plan Discussed and Chart Reviewed Final Anesthetic Review Family History of Problems with Anesthesia: No History of Problems with Anesthesia: No NPO: Yes ASA Class: I Final Preanesthetic Review: No Changes in Pt Med Stat, Meds/Allgs Chart Reviewed, Consent Obtained/Reviewed and Anes Risks/Benef Reviewed Patient Risk: Low Procedure Risk: Low Anesthetic Plan Anesthetic Plan: GA and Agree w/ Assess. and Plan Disposition: Standard PACU
[2024-01-14] MEDS: Lactated Ringers 1,000 ML 100 ML IVCONT (10:53)
--- NOTE | 2024-01-14 12:33 | W.PM.OPN ---
Operative Note Operative Note Date of Service: 01/14/24 Narrative: Preoperative diagnosis: [] Massive completes/scrotal incarcerated right inguinal hernia Postop diagnosis: [] The same Procedure [] open right inguinal herniorrhaphy with Bard mesh Surgeon: [] Steven Tank Cooper: [] Johnnie Type of Anesthesia: [] General Indication for surgery: [] Patient had a massive complete/scrotal irreducible inguinal hernia with huge omental incarcerated contents Findings: [] Patient brought to the operating room, placed on operative table supine position, after an adequate general anesthesia was induced, the patient's abdomen scrotal area were prepped draped in usual sterile fashion. Using a small right para inguinal incision, this carried down through skin, subcutaneous tissue, Daniel's fascia. External oblique fibers were opened in their direction with care to isolate and preserve the ilioinguinal nerve throughout the procedure. A massive indirect hernia sac which extended into the scrotum was identified. Sac and spermatic cord were encircled and retracted from the field. Sac was from the spermatic cord. Sac had to be opened were tremendous amounts of incarcerated hernia were eventually reduced. This incarcerated omentum was sequentially clamped, cut, and tied using 0 Vicryl ties. Redundant stump of omentum was reduced. Sac was closed using running 2-0 Vicryl suture. An extra-large Bard plug was placed in the indirect defect, and sutured inferiorly to the inguinal ligament, and superiorly to the transversalis fascia using interrupted 0 Ethibond suture. Grasped also covered the entire inguinal floor. Wound was irrigated, secured hemostasis, and closed in the following manner; external oblique fascia was closed using running 2-0 Vicryl suture. Daniel's fascia was reapproximated using interrupted 3-0 Vicryl sutures. Interrupted inverted deep dermal 3-0 Vicryl sutures followed by running subcuticular 4-0 Vicryl sutures were placed. Steri-Strips and sterile dressings were applied. Wound was infiltrated at the beginning and at the end with ilioinguinal block and local infiltration of 0.5% Marcaine/1% lidocaine. Sponge, needle, and instrument counts were reported correct. Patient tolerated the procedure well and emerged from anesthesia stable condition. Ipsilateral testicle was intrascrotal at completion. EBL minimal
[2024-01-14] MEDS: fentaNYL citrate/PF 100 MCG/2 ML VIAL 25 MCG IVPUSH (13:05)
== END 2024-01-14 14:14 | disposition home or self-care (01) ==
PROVIDERS: Visit Provider Surgery
PROC: (CPT 49507; principal; 2024-01-14 11:00)
DX: K40.30 Unilateral inguinal hernia, with obstruction, without gangrene, not specified as recurrent (principal); Z98.890 Other specified postprocedural states
CPT/HCPCS: 49507; 88304; C1781; J0690; J1100; J1596; J2250; J2405; J2704; J2795; J3010

== ENCOUNTER → 2024-01-14 09:02 | Outpatient (BNV) | payer OTHER, SELFPAY | PROVIDERS: Visit Provider Surgery | DX: K40.90 Unilateral inguinal hernia, without obstruction or gangrene, not specified as recurrent (principal) | CPT/HCPCS: 49505 ==

== ENCOUNTER 2024-01-25 11:36 | Outpatient (AMB) | payer OTHER, SELFPAY ==
--- NOTE | 2024-01-25 11:40 | MHC.OFFVIS ---
Intake Visit Reasons: S/P TNH w/mesh Intake Note: Patient is seen in office for post op assessment post right inguinal hernia repair. Pt c/o: swelling, pain, discomfort when walking. surgery 01/14/24 Complex Care Nurse Required: No Accompanied by: Spouse Allergies No Known Allergies Allergy (Verified 01/25/24 11:41) HPI Comments Details: Patient presents with a cm for follow-up status post right inguinal hernia repair. He is doing well. He is tolerating his diet. He is increasing his activity level. He is ambulating with no difficulties. Is incisional discomfort is improving. [facility] Surgical History (Updated 01/25/24 @ 13:11 by Mikey Harris MD) S/P right inguinal herniorrhaphy (01/14/24) History of testicular surgery Social History Patient Tobacco Use Status: Never used Tobacco Physical Exam GI Other: Abdomen is soft. Wound clean dry and intact healing very well Assessment & Plan Assessment & Plan (1) Postoperative hernia: Code(s): K43.2 - Incisional hernia without obstruction or gangrene Category: Surgical Plan Patient was given a note for out of work for 4 weeks and then to commenced 2 weeks light duty. The meantime, he can do all the walking like but no strenuous activities for at least another 4-5 weeks. All questions answered. Patient otherwise follow-up p.r.n.. Coding Level of Care Code Global (11947) Diagnoses Postoperative hernia K43.2
== END 2024-01-25 12:12 | disposition home or self-care (01) ==
PROVIDERS: PCP Family Medicine; Visit Provider Surgery
DX: K43.2 Incisional hernia without obstruction or gangrene (principal)
CPT/HCPCS: 99024

== ENCOUNTER → 2024-01-25 11:36 | Outpatient (BNVA) | payer OTHER, SELFPAY | PROVIDERS: PCP Family Medicine; Visit Provider Surgery | DX: Z48.815 Encounter for surgical aftercare following surgery on the digestive system (principal); K43.2 Incisional hernia without obstruction or gangrene | CPT/HCPCS: 99212 ==